=== PATIENT | female | born 1955 | race Caucasian/White ===

== ENCOUNTER 2017-08-29 06:55 | Day surgery (SDC) | payer MEDICARE ==
[~2017-08-29] VITALS: Ht 170.2 cm; Wt 104.3 kg
[~2017-08-29 06:55] MED LIST: BUPRENORPHINE HC8 MG SL; HYDROCORTISONE5 MG PO; LASIX20 MG PO; LEVOTHYROXINE125 MCG PO; LEXAPRO20 MG PO; LISINOPRIL20 MG PO; LUMIGAN2.5 M1 OPTH; NEXIUM40 MG PO; OXYBUTYNIN CHLOR5 MG PO; PILOCARPINE HCL5 MG PO; SINGULAIR10 MG PO; VENTOLIN HFA18 GM INH
--- NOTE | 2017-08-29 11:55 | NUR ---
08/29/17 1155 Mona Hernandez 1147 - PT ARRIVED TO PACU, MAINTAINING OWN AIRWAY. GENERALIZED RASH NOTED OVER SKIN, ESPICIALLY SUB PANNUS (BRIGH RED).
--- NOTE | 2017-08-29 12:45 | NUR ---
PT IS BACK TO DS FROM PACU. SHE IS REPORTING FEELING LIKE SHE NEEDS TO PEE. SPOUSE IS AT THE BEDSIDE. CALL LIGHT WITHIN REACH. NO OTHER C/O'S AT THIS TIME. WILL REASSESS WITHIN THE HOUR.
--- NOTE | 2017-08-29 13:14 | NUR ---
LE 1250: PT IS PUT ON A BEDPAN, SHE IS ABLE TO VOID 150ML. URINE GETS ON THE BEDDING, A NEW DRAW SHEET AND A LAM'S PAD IS SWAPED OUT FOR THE WET/DIRTY LINEN.
--- NOTE | 2017-08-29 14:06 | NUR ---
PT STATES THAT SHE IS READY TO GO HOME AND THAT SHE IS FEELING BETTER.
[2017-08-29] MEDS ORDERED: KEFLEX500 MG PO (14:14)
[2017-08-29] MEDS ORDERED: PERCOCET 5-3251 EACH PO (14:14)
--- NOTE | 2017-08-30 13:21 | OR ---
[facility] [address] [place], [place] [address] Signed DATE OF OPERATION: 08/29/2017 SURGEON: Christy Lamb MD PREOPERATIVE DIAGNOSES: 1. Overactive bladder. 2. Status post failure of sacral neuromodulation device. POSTOPERATIVE DIAGNOSES: 1. Overactive bladder. 2. Status post failure of sacral neuromodulation device. NAMES OF PROCEDURES: 1. Explantation of InterStim bladder stimulation device. 2. Cystoscopy with Botox bladder injection, 100 units. ANESTHESIA: General. ESTIMATED BLOOD LOSS: Minimal. COMPLICATIONS: None. SPECIMENS: The InterStim IPG with tined lead was removed fully intact without difficulty. INDICATION FOR PROCEDURE: Ms. Bazzi is a very pleasant 61-year-old female with a history of severe overactive bladder symptoms including constant bouts of urge incontinence along with urgency and frequency symptoms. She had undergone insertion of a sacral neuromodulation device for management of her overactive bladder. Unfortunately, this device failed and she has been back on oral medication for control of her symptoms. She recently presented to clinic requesting removal of the InterStim IPG and tined lead so that she may undergo MRI evaluation of her spine as needed given her history of spinal pathology. She also desired definitive treatment of her overactive bladder and was familiar with Botox given her history of migraine headaches. She presents today to undergo explantation of the InterStim IPG and tined lead, along with cystoscopy with Botox bladder injection of 100 units. Electronically Signed By: CHRISTY LAMB MD 08/30/17 1321 PATIENT NAME: JESSENIA BAZZI OPERATIVE REPORT DATE OF : 57 PHYSICIAN: CHRISTY LAMB MD REPORT #: [id number] REPORT IS CONFIDENTIAL AND NOT TO BE RELEASED WITHOUT AUTHORIZATION [facility] [address], [place] [address] Signed OPERATIVE FINDINGS: 1. On cystoscopy, there was no evidence of any suspicious masses, lesions, or stones within the bladder. She has areas of grade 1 trabeculation present on the right lateral wall of the bladder as well as the posterior wall of the bladder. A total of 100 units of Botox was injected into the patient's detrusor muscle via a 10 mL of botulinum toxin mixed into a saline solution. A total of 100 units was injected today without difficulty. 2. The InterStim IPG device along with the entire tined lead was explanted from the superior aspect of the patient's right buttock along with her right S3 sacral foramina. DESCRIPTION OF PROCEDURE: After informed consent was obtained, the patient was taken back to the operating room. She was placed under general anesthesia while in the supine position, and was then transferred to the operating room table and placed in the prone position. Her arms and legs were appropriately positioned and then padded. Her lower back and superior portion of the buttocks were then prepped and draped in a standard sterile fashion. Approximately 4 cm transverse incision was made over the existing scar present over the superior aspect of the right Botox. This incision was dissected down to the level of the IPG device. Once I entered the capsule, the IPG device was removed and the IPG device was cut from the tined lead. I then pulled on the lead to look for the entrance site of the tined lead into the sacral foramina. I made another 1 cm incision over this entrance site and dissected down with the help of hemostats. I was able to palpate the distal aspect of the tined lead and once I found this, I was able to pull on the tined lead to look for the source of origin. I placed the hemostats as far down onto the lead as possible and pulled the lead and was successfully able to pull the entire lead fully intact from the S3 sacral foramina on the right side. Hemostasis was then achieved via electrocautery for both the pocket site and for the tined lead location. These both sites were then copiously irrigated with solution. The supragluteal pocket was then obliterated using of 3-0 Vicryl in a muqiwp-kj-wcasd fashion. The subcutaneous fat was closed in a simple interrupted fashion. The final superficial skin layer was closed with a subcutaneous running suture using 4-0 Monocryl. The same was performed at the site where the tined lead had been. The subcutaneous tissue was closed in a hgsxql-qj-jszht fashion. The skin was closed in a continuous running fashion using 4-0 Monocryl. Once both incisions were closed completely, a Dermabond dressing was placed. This portion of the procedure was then terminated. She was then placed back onto the [facility] in a supine position, then in the supine position, the patient was transferred back to the operating room table and placed in the dorsal lithotomy position. Her genital area was prepped and draped in a standard sterile fashion. She was maintained under general anesthesia at this time with endotracheal intubation. Using a 30-degree lens on a 22-Welsh introducer rigid cystoscope was inserted into urethra and into the bladder. A complete diagnostic cystoscopy was performed. Please see the above findings. I then advanced the injection Electronically Signed By: CHRISTY LAMB MD 08/30/17 1321 PATIENT NAME: JESSENIA BAZZI OPERATIVE REPORT DATE OF : 57 PHYSICIAN: CHRISTY LAMB MD REPORT #: [id number] REPORT IS CONFIDENTIAL AND NOT TO BE RELEASED WITHOUT AUTHORIZATION [facility] [address] [facility] [place] [place] [address] Signed needle into the patient's bladder and began injection of the botulinum toxin. A total of 20.5 mL injections were made all throughout the bladder wall, primarily at the posterior lateral dewey of the bladder. I avoided the trigone and dome portions of the bladder as well as the bilateral ureteral orifices. Once all the injections were placed, I placed an additional 1 mL of saline solution in order to be sure all the botulinum toxin was used. Once all the injections were complete, I drained the patient's bladder and removed the cystoscope. The procedure was then terminated. The patient tolerated the procedure well without any complication. She will now be transferred to the postanesthesia care unit in stable condition. DISPOSITION: I discussed the details of both today's procedures with the patient's and answered all of his questions. She will be sent home today with Keflex 500 mg p.o. b.i.d. for a total of seven days along with Percocet 5/325, dispense #30 as needed for pain. She will be scheduled to return to clinic in one month for a postoperative check of both her incision site as well as her overactive bladder symptoms. MD WILVER Mendez/JAYLEEN /[id number] Electronically Signed By: CHRISTY LAMB MD 08/30/17 1321 PATIENT NAME: JESSENIA BAZIZ OPERATIVE REPORT DATE OF : 57 PHYSICIAN: CHRISTY LAMB MD REPORT #: [id number] REPORT IS CONFIDENTIAL AND NOT TO BE RELEASED WITHOUT AUTHORIZATION
== END 2017-08-29 14:35 | disposition home or self-care (01) ==
LOC: DS 06:55 → OPS 06:55 → DS 09:30 → OPS 09:30
PROVIDERS: Urology
PROC: 0JPT0MZ Removal of Stimulator Generator from Trunk Subcutaneous Tissue and Fascia, Open Approach (ICD-10-PCS; 2017-08-29)
PROC: 3E0K8GC Introduction of Other Therapeutic Substance into Genitourinary Tract, Via Natural or Artificial Opening Endoscopic (ICD-10-PCS; principal; 2017-08-29 09:30)
PROC: 01PY3MZ Removal of Neurostimulator Lead from Peripheral Nerve, Percutaneous Approach (ICD-10-PCS; 2017-08-29 09:30)
DX: N32.81 Overactive bladder (principal); T85.192A Other mechanical complication of implanted electronic neurostimulator of spinal cord electrode (lead), initial encounter; J45.909 Unspecified asthma, uncomplicated; G47.33 Obstructive sleep apnea (adult) (pediatric); J44.9 Chronic obstructive pulmonary disease, unspecified; F32.9 Major depressive disorder, single episode, unspecified; F41.0 Panic disorder [episodic paroxysmal anxiety]; I10 Essential (primary) hypertension; M19.90 Unspecified osteoarthritis, unspecified site; M50.30 Other cervical disc degeneration, unspecified cervical region; M51.36 Other intervertebral disc degeneration, lumbar region; K21.9 Gastro-esophageal reflux disease without esophagitis; E87.6 Hypokalemia; E03.9 Hypothyroidism, unspecified; E78.2 Mixed hyperlipidemia; F43.10 Post-traumatic stress disorder, unspecified; E55.9 Vitamin D deficiency, unspecified; Z90.710 Acquired absence of both cervix and uterus; Z98.890 Other specified postprocedural states; Z79.899 Other long term (current) drug therapy
CPT/HCPCS: 00860; J0330; J0690; J1100; J1720; J1885; J2250; J2405; J2704; J2765; J3010; J7120

== ENCOUNTER 2017-12-14 10:40 | Day surgery (SDC) | payer MEDICARE ==
[~2017-12-14] VITALS: Ht 170.2 cm; Wt 104.3 kg
[~2017-12-14 10:40] MED LIST changes: +EFFEXOR XR37.5 MG PO; +KEFLEX500 MG PO; +PERCOCET 5-3251 EACH PO
--- NOTE | 2017-12-14 13:40 | NUR ---
12/14/17 1340 Saida Rahman 1331 PT ARRIVED DROWSY AND COUGHING. 1333 PT TAKING SMALL SIP OF WATER PER MD. SITTING IN HIGH FOWLERS. DENIES PAIN AND NAUSEA. 1338 PT ASLEEP OFF AND ON.
--- NOTE | 2017-12-15 07:57 | OR ---
[facility] [address] [place], [place] [address] Signed DATE OF OPERATION: 12/14/2017 SURGEON: Tere Vigil MD PREOPERATIVE DIAGNOSES: 1. Epigastric abdominal pain. 2. Esophageal dysphagia. 3. History of peptic ulcer disease in her 20s. 4. Paternal aunt with stomach cancer. POSTOPERATIVE DIAGNOSES: 1. Feem-ct-yqvwbpqz diffuse gastritis. 2. Small hiatal hernia. PROCEDURES: EGD with CLOtest and biopsies of the antrum. ESTIMATED BLOOD LOSS: None. INDICATIONS: Jessenia is a 62-year-old female, who has been having trouble with epigastric abdominal pain and esophageal dysphagia. She was worried because of paternal aunt had stomach cancer. Also Jessenia had ulcers back in her 20s. She was asked to see me for an upper endoscopy. I met with Jessenia in the office. I gave her a pamphlet on upper endoscopy. We looked at that together along with the risks and benefits including, but not limited to gas, bloating, crampy abdominal pain, bleeding, perforation, requiring surgery, and missed diagnosis. 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 We asked that Anesthesia provider help us with increased monitoring of her airway infusion of propofol. She had expressed understanding and wished to proceed. PROCEDURE NOTE: Jessenia was taken into our endoscopy suite and she was placed in the supine semi-recumbent position. The posterior oropharynx was anesthetized with Hurricaine spray. A bite block was utilized for the case. She was given propofol per nurse corporate planner. She proved to be a moderately difficult airway and had to be monitored very closely. The adult gastroscope was introduced and advanced out into the third portion of the duodenum. The duodenum and pyloric channel were unremarkable. The stomach showed Electronically Signed By: TERE VIGIL MD 12/15/17 0757 PATIENT NAME: JESSENIA BAZZI OPERATIVE REPORT DATE OF : 57 REPORT #: [id number] PHYSICIAN: TERE VIGIL MD PCP: MIRA SUTTON DO REPORT IS CONFIDENTIAL AND NOT TO BE RELEASED WITHOUT AUTHORIZATION [facility] [address] [place] [address] Signed diffuse superficial gastritis. We took a biopsy from the antrum for CLOtest as well as pathologic review. There were no ulcerations. The scope was retroflexed and she does have a small hiatal hernia. The scope was withdrawn up through the GE junction, which was compliant without stricture. She did have a little granulation tissue around the Z-line. There was no Bueno's mucosa, no distal esophagitis. No esophageal varices. The middle and upper esophagus were unremarkable. After this, the gas was suctioned out. The colonoscope removed. Jessenia tolerated this procedure quite well. RECOMMENDATIONS: I will see Jessenia back in my office in 7 to 14 days to review her results. She also might consider a followup colonoscopy as previously discussed. Tere Vigil MD ALB/MODL /[id number] cc: MD Mira Pro MD Copies: TERE VIGIL MD ~ Electronically Signed By: TERE VIGIL MD 12/15/17 0757 PATIENT NAME: JESSENIA BAZZI OPERATIVE REPORT DATE OF : 57 REPORT #: [id number] PHYSICIAN: TERE VIGIL MD PCP: MIRA SUTTON DO REPORT IS CONFIDENTIAL AND NOT TO BE RELEASED WITHOUT AUTHORIZATION
== END 2017-12-14 14:04 | disposition home or self-care (01) ==
LOC: DS 10:40 → OPS 10:40 → DS 11:15 → OPS 11:15
PROVIDERS: Colon & Rectal Surgery
PROC: 0DB78ZX Excision of Stomach, Pylorus, Via Natural or Artificial Opening Endoscopic, Diagnostic (ICD-10-PCS; 2017-12-14)
PROC: 0DB48ZX Excision of Esophagogastric Junction, Via Natural or Artificial Opening Endoscopic, Diagnostic (ICD-10-PCS; principal; 2017-12-14 12:00)
DX: K29.50 Unspecified chronic gastritis without bleeding (principal); K31.9 Disease of stomach and duodenum, unspecified; K44.9 Diaphragmatic hernia without obstruction or gangrene; K21.9 Gastro-esophageal reflux disease without esophagitis; I10 Essential (primary) hypertension; J45.909 Unspecified asthma, uncomplicated; E78.5 Hyperlipidemia, unspecified; E03.9 Hypothyroidism, unspecified; M06.9 Rheumatoid arthritis, unspecified; M79.7 Fibromyalgia; F31.9 Bipolar disorder, unspecified; F43.10 Post-traumatic stress disorder, unspecified; F41.9 Anxiety disorder, unspecified; H40.9 Unspecified glaucoma; G47.30 Sleep apnea, unspecified; M19.90 Unspecified osteoarthritis, unspecified site; Z98.890 Other specified postprocedural states; Z87.11 Personal history of peptic ulcer disease; Z80.0 Family history of malignant neoplasm of digestive organs; Z87.891 Personal history of nicotine dependence; Z88.8 Allergy status to other drugs, medicaments and biological substances; Z79.52 Long term (current) use of systemic steroids; Z79.899 Other long term (current) drug therapy
CPT/HCPCS: 86677; 88305; J1720; J2704; J7120